=== PATIENT | male | born 1995 | race Caucasian/White ===

== ENCOUNTER 2017-07-07 22:23 | Emergency (ER) | payer BC, OTHER ==
[~2017-07-07] VITALS: Ht 182.9 cm; Wt 116.5 kg
[2017-07-07 22:25] VITALS: Ht 182.9 cm; Wt 116.5 kg
[2017-07-08] MEDS ORDERED: METOCLOPRAMIDE 10 MG INJ IV ONE
[2017-07-08] MEDS ORDERED: SOD CHLORIDE 0.9% 500 ML IV ONE
[2017-07-08] MEDS ORDERED: DIPHENHYDRAMINE 50 MG INJ IV ONE
[2017-07-08 00:31] VITALS: TEMP 98.7
[2017-07-08] MEDS ORDERED: BUTA1CAP38 PO (01:02)
--- NOTE | 2017-07-08 01:05 | ERD ---
ER Documentation Chief Complaint Date/Time DATE: 07/08/17 TIME: 01:02 Chief Complaint headache x 5 days HPI This 21-year-old male presented with a headache for 5 days. The headache is on the right side of his head and a coming by nausea, photophobia and some blurring of vision. He has had headaches like this previously. He suffered no trauma. The headache came on gradually got worse. No fevers. ROS All systems reviewed and are negative except as per history of present illness. Medications Home Meds Active Scripts Nhazqdtgjn-Nrzathqfhfrjz-Lunjbnpw* (Fioricet*) 50-300-40 Mg Capsule, 1 CAP PO Q4H Y for HEADACHE, #10 CAP Prov:STEFANIE KEITH DO 07/08/17 Allergies Allergies: Coded Allergies: No Known Allergy (Unverified , 05/22/14) PMhx/Soc Medical and Surgical Hx: pt denies Medical Hx, pt denies Surgical Hx History of Surgery: No Anesthesia Reaction: No Hx Neurological Disorder: No Hx Respiratory Disorders: No Hx Cardiac Disorders: No Hx Psychiatric Problems: No Hx Miscellaneous Medical Probl: No Hx Alcohol Use: No Hx Substance Use: No Hx Tobacco Use: No Smoking Status: Never smoker Physical Exam Vitals Vital Signs Date Time Temp Pulse Resp B/P Pulse Ox O2 Delivery O2 Flow Rate FiO2 07/08/17 00:31 98.7 07/07/17 22:25 97.8 90 20 148/92 100 Physical Exam Const: [] Mild distress Head: Atraumatic Eyes: Normal Conjunctiva, EOMI, JAI ENT: Normal External Ears, Nose and Mouth. Neck: Full range of motion..~ No meningismus. Skin: No petechiae or rashes Back: No midline or flank tenderness Ext: No cyanosis, or edema Neur: Awake and alert and oriented 3, cranial 2 through 12 intact, no cerebellar deficits, normal gait. Psych: Normal Mood and Affect Results 24 hrs Current Medications Medications (Trade) Dose Ordered Sig/Mis Route PRN Reason Start Time Stop Time Status Last Admin Dose Admin Diphenhydramine HCl (Benadryl) 12.5 mg ONCE ONCE IV 07/08/17 00:00 07/08/17 00:01 DC 07/08/17 00:13 Metoclopramide HCl 10 mg 10 mg ONCE ONCE IV 07/08/17 00:00 07/08/17 00:01 DC 07/08/17 00:13 Sodium Chloride (NS) 500 ml @ 500 mls/hr Q1H ONCE IV 07/08/17 00:00 07/08/17 00:59 DC 07/08/17 00:10 Procedures/MDM Headache with features of migraine with blurred vision and photophobia. No signs of meningitis. Patient was given a headache cocktail 12.5 mill grams IV Benadryl, 10 mg of Reglan, 500 cc of IV fluid. Within 20 minutes the patient had no headache whatsoever. Blurred vision had resolved as well had nausea I have low suspicion for subarachnoid hemorrhage. I am going to discharge him with some Fioricet and return precautions to the ER. Departure Diagnosis: Primary Impression: Acute headache Additional Impressions: Blurred vision Nausea Condition: Stable Patient Instructions: Headache, Unspecified Additional Instructions: Call your primary care doctor TOMORROW for an appointment during the next 2-3 days.See the doctor sooner or return here if your condition worsens before your appointment time. STEFANIE KEITH DO Jul 08, 2017 01:05
== END 2017-07-08 01:01 | disposition home or self-care (01) ==
LOC: FTE 22:23
DX: R51 Headache (principal); R11.0 Nausea; H53.8 Other visual disturbances
CPT/HCPCS: 96374; 96375; J1200; J2765; J7040; Z7502